=== PATIENT | male | born 1990 | race Caucasian/White ===

== ENCOUNTER 2019-03-11 17:45 | Emergency (ER) | payer BC, OTHER ==
[2019-03-11 17:58] VITALS: BP 149/82; PULSE 83; TEMP 97.6; BMI 18.8
--- NOTE | 2019-03-11 18:07 | PDOC ---
Documentation entered by Alex Markham SCRIBE, acting as scribe for Nishant Scales MD. Nishant Scales MD: This documentation has been prepared by the Rashi tran Xhesika, SCRIBE, under my direction and personally reviewed by me in its entirety. I confirm that the documentation accurately reflects all work, treatment, procedures, and medical decision making performed by me. Attending Attestation - Resident Resident Name: DaryaLambertzionelizabeth - ED Attending Attestation I have performed the following: I have examined & evaluated the patient, The case was reviewed & discussed with the resident, I agree w/resident's findings & plan, Exceptions are as noted - HPI HPI: 03/11/19 18:11 The patient is a 28 year old male, with a significant past medical history of IBS and Asthma who presents to the emergency department with R shoulder pain. The patient states he was lifting something heavy at work which he usually does and felt a pop and twist on his right shoulder. The patient states he immediately iced his shoulder, however, the pain is aggravated with arm and shoulder movement. The patient denies chest pain, shortness of breath, headache or dizziness. The patient denies fever, chills, nausea, vomit, diarrhea or constipation. The patient denies dysuria, frequency, urgency or hematuria. Allergies:NKDA Past surgical history:None reported Social history: None reported PCP: Carie Steward - Physicial Exam PE: 03/11/19 18:07 GENERAL: Awake, alert, and fully oriented, in no acute distress HEAD: No signs of trauma EYES: EOMI, sclera anicteric, conjunctiva clear ENT: Auricles normal inspection, hearing grossly normal, nares patent, oropharynx clear without exudates. Moist mucosa NECK: Normal ROM, supple, EXTREMITIES: Normal range of motion, no edema. No clubbing or cyanosis. No cords, erythema, or tenderness RUE: 2+ radial pulse. Sensation and strength intact throughout the median/radian /ulnar nerve. Sensation intact over deltoid. Able to passively range the right shoulder fully with some discomfort. No obvious deformity. No lacerations or tears. Moderate TTP R anterior should. Pain elicited on active movement on right shoulder NEUROLOGICAL: Cranial nerves II through XII grossly intact. Normal speech, normal gait SKIN: Warm, Dry, normal turgor, no rashes or lesions noted. - Medical Decision Making 03/11/19 18:08 A portion of this note was documented by scribe services under my direction. I have reviewed the details of the note, within reason, and agree with the documentation with the following case summary and management plan written by me. Patient treated in the ED. Nursing notes are reviewed and incorporated into the medical decision-making. Vital signs reviewed. Vital Signs Temp Pulse Resp BP Pulse Ox 97.6 F 83 18 149/82 99 03/11/19 17:45 03/11/19 17:45 03/11/19 17:45 03/11/19 17:45 03/11/19 17:45 28-year-old male with with past mental history of asthma, IBS presents with right shoulder pain. The patient works and was carrying heavy object. He felt a twist in his right shoulder and felt some discomfort. No numbness or weakness. Patient is neurovascularly intact but likely with right shoulder strain. We'll obtain a right shoulder x-ray to rule out fracture. If x-rays negative for fracture, the patient should be discharged with a sling, NSAIDs and supportive care and follow-up with orthopedics as an outpatient. 03/11/19 19:05 Should xray reviewed by me, pending official radiology read. No acute findings. Pt placed on sling. Will discharge pt with ortho followup.
--- NOTE | 2019-03-11 18:59 | PDOC ---
History of Present Illness - General Chief Complaint: Pain Stated Complaint: RT SHOULDER PAIN Time Seen by Provider: 03/11/19 17:53 - History of Present Illness Initial Comments: 28 year old male with no PMH presenting with right shoulder pain with movement after lifting a heavy television. Denies any popping or tearing sounds or sensation. Denies any deformity but states that it is difficult and painful move his right arm at the shoulder. He did not take anything for the pain adn states that it got worse with time. Denies fevers, chills, nausea, vomiting, diarrhea, or other symptoms. Past History - Past Medical History Allergies/Adverse Reactions: Allergies Allergy/AdvReac Type Severity Reaction Status Date / Time morphine Allergy Rash Verified 03/11/19 17:49 IV DYE Allergy Uncoded 03/11/19 17:49 Home Medications: Ambulatory Orders Fluticasone/Salmeterol [Advair Hfa 230-21 Mcg Inhaler] 1 inh PO DAILY 03/11/19 Asthma: Yes COPD: No GI Disorders: Yes (IBS) - Suicide/Smoking/Psychosocial Hx Smoking History: Never smoked Have you smoked in the past 12 months: No Information on smoking cessation initiated: No Hx Alcohol Use: (occasional) Drug/Substance Use Hx: No Substance Use Type: None *Physical Exam - Vital Signs Last Vital Signs Temp Pulse Resp BP Pulse Ox 97.6 F 83 18 149/82 99 03/11/19 17:45 03/11/19 17:45 03/11/19 17:45 03/11/19 17:45 03/11/19 17:45 ED Treatment Course - RADIOLOGY Radiology Studies Ordered: Category Date Time Status SHOULDER-RIGHT [RAD] Stat Radiology 03/11/19 17:58 Taken *DC/Admit/Observation/Transfer Diagnosis at time of Disposition: Right shoulder pain Qualifiers: Chronicity: acute Qualified Code(s): M25.511 - Pain in right shoulder - Discharge Dispostion Disposition: HOME Condition at time of disposition: Improved Decision to Admit order: No - Referrals Referrals: Carie Ureña MD [Primary Care Provider] - Tucker Andre MD [Staff Physician] - - Patient Instructions Printed Discharge Instructions: DI for Rotator Cuff Injury Additional Instructions: Please use ibuprofen or Tylenol for your pain. Please make an appointment with the orthopedic surgeon for this week. Please return to the ED if you have new or worsening symptoms. - Post Discharge Activity
== END 2019-03-11 19:05 | disposition home or self-care (01) ==
LOC: FER 17:45
DX: M25.511 Pain in right shoulder (principal); K58.9 Irritable bowel syndrome, unspecified; J45.909 Unspecified asthma, uncomplicated
CPT/HCPCS: 73030-TC-RT-FY; 99283-25

== ENCOUNTER 2019-07-04 17:17 | Emergency (ER) | payer OTHER ==
[2019-07-04 17:21] VITALS: BP 115/72; PULSE 70; TEMP 98.4; BMI 17.8
[2019-07-04] MEDS ORDERED: MAG HYDROX/AL HYDROX/SIMETH 30 ML UNIT-DOSE CUP PO ONE (17:51)
[2019-07-04] MEDS ORDERED: SODIUM CHLORIDE 1,000 ML IV STA (17:51)
[2019-07-04] MEDS ORDERED: PANTOPRAZOLE SODIUM 40 MG in SODIUM CHLORIDE 100 ML IVPB ONE (17:51)
[2019-07-04] MEDS ORDERED: ONDANSETRON 4 MG/2 ML VIAL IVPB ONE (17:51)
[2019-07-04] MEDS ORDERED: LIDOCAINE VISCOUS 2% ORAL/TOP 20 ML UNIT-DOSE CUP MM ONE (17:52)
[2019-07-04] MEDS ORDERED: ONDANSETRON 4 MG/2 ML VIAL ONE (18:03)
[2019-07-04] MEDS ORDERED: PANTOPRAZOLE SODIUM 40 MG VIAL ONE (18:04)
[2019-07-04] MEDS ORDERED: LIDOCAINE VISCOUS 2% ORAL/TOP 20 ML UNIT-DOSE CUP ONE (18:11)
[2019-07-04] MEDS ORDERED: MAG HYDROX/AL HYDROX/SIMETH 30 ML UNIT-DOSE CUP ONE (18:11)
[2019-07-04 18:12] LABS: HEMATOCRIT 43.4 % (35.4-49); HEMOGLOBIN 14.6 GM/dl (11.7-16.9); MCH 32.1 pg (25.7-33.7); MCHC 33.7 g/dl (32.0-35.9); MEAN CELL VOLUME 95.2 fl (80-96); MEAN PLT VOLUME 10.6 fl (7.5-11.1); PLATELET COUNT 203 K/MM3 (134-434); RBC 4.56 M/mm3 (4.00-5.60); RDW 12.5 % (11.9-15.9)
[2019-07-04 18:28] LABS: ALBUMIN 4.7 g/dl (3.4-5.0); BILIRUBIN,TOTAL 0.9 mg/dl (0.2-1); CALCIUM 9.5 mg/dl (8.5-10); CREATININE 0.9 mg/dl (0.55-1.3); POTASSIUM 3.7 mmol/L (3.5-5.1); TOT PROT 7.7 g/dl (6.4-8.2)
--- NOTE | 2019-07-04 18:34 | PDOC ---
History of Present Illness - General Chief Complaint: Pain Stated Complaint: gerd Time Seen by Provider: 07/04/19 17:25 - History of Present Illness Initial Comments: 07/04/19 18:02 28 M with h/o GERD and asthma presents to ED with severe GERD-like symptoms. Pt states that since this morning, he has had a sensation of stomach contents coming back up his throat. Denies any vomiting but endorses dry heaving. Pt states that anytime he eats or drinks anything, he feels a pressure in his throat and feels like the food is going to come back up. Denies abdominal pain. Denies CP/SOB. Denies F/C. Pt states he took 2 tums and a pepcid with no relief. Pt able to tolerate fluids with no difficulty but states food makes his symptoms much worse. Past History - Past Medical History Allergies/Adverse Reactions: Allergies Allergy/AdvReac Type Severity Reaction Status Date / Time morphine Allergy Rash Verified 07/04/19 17:18 IV DYE Allergy Uncoded 07/04/19 17:18 Home Medications: Ambulatory Orders Fluticasone/Salmeterol [Advair Hfa 230-21 Mcg Inhaler] 1 inh PO DAILY 03/11/19 Pantoprazole Sodium [Protonix -] 20 mg PO DAILY #30 tablet.ec 07/04/19 Asthma: Yes COPD: No GI Disorders: Yes (IBS) - Suicide/Smoking/Psychosocial Hx Smoking History: Never smoked Have you smoked in the past 12 months: No Hx Alcohol Use: Yes (ocasional) Drug/Substance Use Hx: No Substance Use Type: None Review of Systems - Review of Systems Comments:: 07/04/19 18:36 GENERAL/CONSTITUTIONAL: No fever or chills. No weakness. HEAD, EYES, EARS, NOSE AND THROAT: No change in vision. No ear pain or discharge. No sore throat. CARDIOVASCULAR: No chest pain, no shortness of breath, no loss of consciousness RESPIRATORY: No cough, wheezing, or hemoptysis. GASTROINTESTINAL: + nausea, + GERD, no vomiting, diarrhea or constipation. GENITOURINARY: No dysuria, frequency, or change in urination. MUSCULOSKELETAL: No joint or muscle swelling or pain. No neck or back pain. SKIN: No rash NEUROLOGIC: No vertigo, no change in strength/sensation. ENDOCRINE: No increased thirst. No abnormal weight change. HEMATOLOGIC/LYMPHATIC: No anemia, easy bleeding, or history of blood clots. ALLERGIC/IMMUNOLOGIC: No hives or skin allergy. *Physical Exam - Vital Signs Last Vital Signs Temp Pulse Resp BP Pulse Ox 98.4 F 70 18 115/72 99 07/04/19 17:17 07/04/19 17:17 07/04/19 17:17 07/04/19 17:17 07/04/19 17:17 - Physical Exam Comments: 07/04/19 18:36 "GENERAL: Awake, alert, and fully oriented, in no acute distress. HEAD: No signs of trauma EYES: PERRLA, EOMI, sclera anicteric, conjunctiva clear ENT: Auricles normal inspection, hearing grossly normal, nares patent, oropharynx clear without exudates. Moist mucosa NECK: Nontender, no stepoffs, Normal ROM, supple, no lymphadenopathy, JVD, or masses LUNGS: Breath sounds equal, clear to auscultation bilaterally. No wheezes, and no crackles HEART: Regular rate and rhythm, normal S1 and S2, no murmurs, rubs or gallops ABDOMEN: Soft, nontender, normoactive bowel sounds. No guarding, no rebound. No masses EXTREMITIES: Normal range of motion, no edema. No clubbing or cyanosis. No cords, erythema, or tenderness NEUROLOGICAL: Cranial nerves II through XII intact. 5/5 strength and sensation in all extremities, Normal speech, normal gait, normal cerebellar function SKIN: Warm, Dry, normal turgor, no rashes or lesions noted. ED Treatment Course - LABORATORY CBC & Chemistry Diagram: 07/04/19 18:00 07/04/19 18:00 Medical Decision Making - Medical Decision Making 07/04/19 18:36 28 M with GERD-like symptoms. Benign abdominal exam. Pt still tolerating fluids. No evidence of esophageal impaction/obstruction. - Labs - GI cocktail 07/04/19 18:52 Labs wnl pending lipase Pt reassessed - feels significantly better. Tolerating PO juice and crackers. Pt is well appearing, with normal vitals. Clinically stable for DC at this time. I discussed the physical exam findings, ancillary test results and final diagnoses with the patient. I answered all of the patient's questions. The patient was satisfied with the care received and felt comfortable with the discharge plan and treatment plan. The patient agrees to follow up with the primary care physician within 24-72 hours. *DC/Admit/Observation/Transfer Diagnosis at time of Disposition: GERD (gastroesophageal reflux disease), Dysphagia, Nausea - Discharge Dispostion Disposition: HOME Condition at time of disposition: Stable - Referrals - Patient Instructions Printed Discharge Instructions: DI for Gastroesophageal Reflux Disease (GERD), DI for Esophageal Dysphagia Additional Instructions: Take the protonix daily to treat your GERD. You must follow up with a GI doctor within 1 week for further evaluation of your GERD and difficulty swallowing. You may need an endoscopy or swallow study. If you experience worsening difficulty swallowing, abdominal pain, vomiting, or any other concerning symptoms, return to the ER immediately. - Post Discharge Activity - Attestations Physician Attestion: 07/04/19 18:55 I, Dr. Larry Gallegos MD, attest that this document has been prepared under my direction and personally reviewed by me in its entirety. I further attest, that it accurately reflects all work, treatment, procedures and medical decision -making performed by me.
[2019-07-04 19:11] LABS: PLATELET ESTIMATE ADEQUATE
== END 2019-07-04 20:19 | disposition home or self-care (01) ==
LOC: FER 17:17
PROC: 3E033GC Introduction of Other Therapeutic Substance into Peripheral Vein, Percutaneous Approach (ICD-10-PCS; principal; 2019-07-04)
PROC: 3E0337Z Introduction of Electrolytic and Water Balance Substance into Peripheral Vein, Percutaneous Approach (ICD-10-PCS; 2019-07-04)
DX: K21.9 Gastro-esophageal reflux disease without esophagitis (principal); R13.10 Dysphagia, unspecified; R11.0 Nausea
CPT/HCPCS: 36415; 80053; 82550; 83690; 84484; 85025; 99283-25; J7030